=== PATIENT | female | born 1980 | race Caucasian/White ===

== ENCOUNTER 2022-07-23 10:34 | Emergency (ER) | payer OTHER ==
[2022-07-23] MEDS ORDERED: Albuterol/Ipratropium 3.0-0.5 MG/3 ML Neb Soln ONE (10:39)
[2022-07-23] MEDS ORDERED: Albuterol/Ipratropium 3.0-0.5 MG/3 ML Neb Soln NEB ONE ×2 (10:45→12:23)
[2022-07-23] MEDS ORDERED: predniSONE 20 MG Tab PO ONE (11:00)
[2022-07-23] MEDS ORDERED: Albuterol/Ipratropium 3.0-0.5 MG/3 ML Neb Soln NEB STA (12:20)
== END 2022-07-23 12:32 | disposition home or self-care (01) ==
LOC: MW.ED 10:34
DX: J45.901 Unspecified asthma with (acute) exacerbation (principal); Z20.822 Contact with and (suspected) exposure to COVID-19
CPT/HCPCS: 87635; 99285; A9270; J7620-GY; U0002

== ENCOUNTER 2022-10-22 17:26 | Emergency (ER) | payer SELFPAY ==
[2022-10-22] MEDS ORDERED: Albuterol/Ipratropium 3.0-0.5 MG/3 ML Neb Soln NEB ONE (17:54)
[2022-10-22] MEDS ORDERED: methylPREDNISolone Sodium Succinate 125 MG/2 ML SDV IVPUSH ONE (17:54)
[2022-10-22] MEDS: methylPREDNISolone Sodium Succinate 125 MG/2 ML SDV IM ONE ×2 (18:10→18:14)
[2022-10-22 18:13] LABS: CORONAVIRUS COVID-19 NAA POSITIVE (NEGATIVE); INFLUENZA A NAA NEGATIVE (NEGATIVE); INFLUENZA B NAA NEGATIVE (NEGATIVE); RESPIRATORY SYNCYTIAL VIR NAA NEGATIVE (NEGATIVE)
[2022-10-22] MEDS ORDERED: Dexamethasone 10 MG/ML SDV PO ONE (18:13)
== END 2022-10-22 19:08 | disposition home or self-care (01) ==
LOC: MW.ED 17:26
DX: U07.1 COVID-19 (principal); J44.9 Chronic obstructive pulmonary disease, unspecified; Z86.711 Personal history of pulmonary embolism; Z79.899 Other long term (current) drug therapy
CPT/HCPCS: 0241U; 99285; J8540; J2930; J7620-GY

== ENCOUNTER 2022-10-28 10:38 | Emergency (ER) | payer SELFPAY ==
[2022-10-28] MEDS ORDERED: Ketorolac 60 MG/2 ML SDV IM ONE (11:00)
[2022-10-28 12:05] LABS: CARBON DIOXIDE,CO2 23.8 mmol/L (21.0-32.0); POTASSIUM,K 4.2 mmol/L (3.5-5.1)
== END 2022-10-28 12:36 | disposition home or self-care (01) ==
LOC: MW.ED 10:38
DX: U07.1 COVID-19 (principal); F17.210 Nicotine dependence, cigarettes, uncomplicated; Z79.899 Other long term (current) drug therapy; Z90.49 Acquired absence of other specified parts of digestive tract; Z90.710 Acquired absence of both cervix and uterus
CPT/HCPCS: 36415; 71045; 80053; 81001; 85025; 96372; 99284; J1885

== ENCOUNTER 2023-01-10 10:29 | Emergency (ER) | payer MEDICAID ==
[2023-01-10 11:34] LABS: CARBON DIOXIDE,CO2 27.3 mmol/L (21.0-32.0); POTASSIUM,K 4.1 mmol/L (3.5-5.1)
== END 2023-01-10 13:00 | disposition home or self-care (01) ==
LOC: MW.ED 10:29
DX: N30.00 Acute cystitis without hematuria (principal); J44.9 Chronic obstructive pulmonary disease, unspecified; Z90.49 Acquired absence of other specified parts of digestive tract; Z79.899 Other long term (current) drug therapy
CPT/HCPCS: 36415; 74176; 74176-26; 80053; 81001; 81025; 85025; 87086; 99284

== ENCOUNTER 2023-01-16 01:44 | Emergency (ER) | payer MEDICAID ==
[2023-01-16] MEDS ORDERED: Ketorolac 30 MG/ML SDV IVPUSH ONE (02:07)
[2023-01-16] MEDS ORDERED: Ondansetron 4 MG/2 ML SDV IVPUSH ONE (02:07)
[2023-01-16] MEDS ORDERED: Sodium Chloride 0.9% 1,000 ML IV ONE (02:07)
[2023-01-16 02:49] LABS: POTASSIUM,K 4.4 mmol/L (3.5-5.1)
[2023-01-16] MEDS ORDERED: Iopamidol 755 MG/ML 500 ML Multipack Bottle IVPUSH STA (04:10)
== END 2023-01-16 05:15 | disposition home or self-care (01) ==
LOC: MW.ED 01:44
DX: K52.9 Noninfective gastroenteritis and colitis, unspecified (principal); J44.9 Chronic obstructive pulmonary disease, unspecified; Z79.899 Other long term (current) drug therapy
CPT/HCPCS: 36415; 74177; 80053; 81001; 83690; 83735; 84703; 85025; 96361; 96374; 96375; 99284; J1885; J2405; J7030; Q9967

== ENCOUNTER 2023-03-01 06:40 | Day surgery (SDC) | payer MEDICAID ==
[~2023-03-01 06:40] MED LIST: Lactated Ringers 1,000 ML IV SCH; Sodium Chloride 0.9% 10 ML Syringe FLUSH PRN; Sodium Chloride 0.9% 2.5 ML Syringe FLUSH PRN; Sodium Chloride 0.9% 20 ML SDV IV PRN
[2023-03-01] MEDS ORDERED: Lidocaine 2% 5 ML SDV ONE (07:48)
[2023-03-01] MEDS ORDERED: Propofol 200 MG/20 ML SDV ONE ×4 (07:48→08:26)
[2023-03-01] MEDS ORDERED: Water For Injection, Sterile 20 ML ONE (08:34)
[2023-03-01] MEDS ORDERED: Lidocaine 1% 5 ML VIAL ONE (11:21)
== END 2023-03-01 09:15 | disposition home or self-care (01) ==
LOC: MW.SDS 06:40
PROVIDERS: ATTEND Surgery
DX: D12.5 Benign neoplasm of sigmoid colon (principal); K62.1 Rectal polyp; K21.9 Gastro-esophageal reflux disease without esophagitis; K44.9 Diaphragmatic hernia without obstruction or gangrene; K31.89 Other diseases of stomach and duodenum; J44.9 Chronic obstructive pulmonary disease, unspecified; M79.7 Fibromyalgia; N28.1 Cyst of kidney, acquired; N94.89 Other specified conditions associated with female genital organs and menstrual cycle; F17.210 Nicotine dependence, cigarettes, uncomplicated; Z79.899 Other long term (current) drug therapy
CPT/HCPCS: 43239; 45380; J2704; J7120; 00813; J3490

== ENCOUNTER 2023-09-01 07:57 | Emergency (ER) | payer MEDICAID | END 2023-09-01 08:40 | disposition home or self-care (01) | LOC: MW.ED 07:57 | DX: T81.9XXA Unspecified complication of procedure, initial encounter (principal); J45.909 Unspecified asthma, uncomplicated; E66.9 Obesity, unspecified; Z68.41 Body mass index [BMI] 40.0-44.9, adult; Z86.16 Personal history of COVID-19; Z79.01 Long term (current) use of anticoagulants; Z79.899 Other long term (current) drug therapy | CPT/HCPCS: 99283 ==

== ENCOUNTER 2023-09-29 05:05 | Emergency (ER) | payer MEDICAID ==
[2023-09-29] MEDS ORDERED: Acetaminophen 325 MG Tab PO ONE (05:30)
[2023-09-29 06:01] LABS: CORONAVIRUS COVID-19 NAA POSITIVE (NEGATIVE); INFLUENZA A NAA NEGATIVE (NEGATIVE); INFLUENZA B NAA NEGATIVE (NEGATIVE)
== END 2023-09-29 06:19 | disposition home or self-care (01) ==
LOC: MW.ED 05:05
DX: U07.1 COVID-19 (principal); J44.9 Chronic obstructive pulmonary disease, unspecified; E66.9 Obesity, unspecified; Z68.41 Body mass index [BMI] 40.0-44.9, adult; Z79.899 Other long term (current) drug therapy
CPT/HCPCS: 0240U; 82947; 99283; A9270

== ENCOUNTER 2024-05-20 08:00 | Emergency (ER) | payer MEDICAID ==
[2024-05-20] MEDS: Albuterol 0.083% 2.5 MG/3 ML Neb Soln NEB ONE (08:22)
[2024-05-20] MEDS: Sodium Chloride 0.9% 2.5 ML Syringe FLUSH PRN (08:22)
[2024-05-20] MEDS: Magnesium Sulfate/Water 2 GM in Premix Bag 1 BAG IV ONE (08:22)
[2024-05-20] MEDS: Sodium Chloride 0.9% 10 ML Syringe FLUSH PRN (08:22)
[2024-05-20] MEDS: Ondansetron 4 MG/2 ML SDV IVPUSH ONE (08:22)
[2024-05-20] MEDS: Albuterol/Ipratropium 3.0-0.5 MG/3 ML Neb Soln NEB ONE (08:23)
[2024-05-20 08:42] LABS: BASE EXCESS VENOUS 0.7 (-2.0-3.0); PH,VENOUS 7.46 (7.31-7.41)
[2024-05-20 08:51] LABS: BASOPHILS ABSOLUTE AUTO 0.03 K/uL (0.00-0.20); BASOPHILS PERCENT AUTO 0.3 % (0.0-1.0); EOSINOPHILS ABSOLUTE AUTO 0.17 K/uL (0.00-0.45); EOSINOPHILS PERCENT AUTO 1.9 % (0.0-6.0); HEMATOCRIT 48.6 % (37.0-47.0); HEMOGLOBIN 16.1 g/dL (12.0-16.0); IMMATURE GRAN ABSOLUTE AUTO 0.02 K/uL (0.00-0.05); IMMATURE GRAN PERCENT AUTO 0.2 % (0.0-0.4); LYMPHOCYTES ABSOLUTE AUTO 1.82 K/uL (1.00-4.80); LYMPHOCYTES PERCENT AUTO 20.3 % (24.0-44.0); MEAN CORPUSCULAR HEMOGLOBIN 29.4 pg (28.0-32.0); MEAN CORPUSCULAR HGB CONC 33.1 g/dL (32.0-36.0); MEAN CORPUSCULAR VOLUME 88.8 fL (83.0-99.0); MEAN PLATELET VOLUME 9.6 fL (9.4-12.3); MONOCYTES ABSOLUTE AUTO 0.84 K/uL (0.00-0.80); MONOCYTES PERCENT AUTO 9.4 % (0.0-8.0); NEUTROPHILS PERCENT AUTO 67.9 % (41.0-71.0); PLATELET COUNT,PLT 323 K/uL (150-400); RED BLOOD CELL COUNT 5.47 M/uL (4.10-5.30); WHITE BLOOD CELL COUNT,WBC 8.98 K/uL (3.9-11.3)
[2024-05-20 09:08] LABS: HEMOGLOBIN A1C 5.6 %
[2024-05-20 09:26] LABS: CORONAVIRUS COVID-19 NAA NEGATIVE (NEGATIVE); INFLUENZA A NAA NEGATIVE (NEGATIVE); INFLUENZA B NAA NEGATIVE (NEGATIVE); RESPIRATORY SYNCYTIAL VIR NAA NEGATIVE (NEGATIVE)
[2024-05-20 09:28] LABS: ALBUMIN 3.5 g/dL (3.4-5.0); BILIRUBIN TOTAL 0.5 mg/dL (0.2-1.0); CALCIUM 8.6 mg/dL (8.5-10.1); CARBON DIOXIDE,CO2 25.6 mmol/L (21.0-32.0); CREATININE 0.9 mg/dL (0.6-1.0); EST CRCL DRUG DOSING (CG) 81.63 mL/min; MAGNESIUM 1.9 mg/dL (1.8-2.4); POTASSIUM,K 3.7 mmol/L (3.5-5.1); PROTEIN TOTAL,TP 7.1 g/dL (6.4-8.2)
[2024-05-20] MEDS: Dexamethasone 4 MG Tab PO ONE (11:42)
== END 2024-05-20 11:52 | disposition home or self-care (01) ==
LOC: MW.ED 08:00
DX: J44.1 Chronic obstructive pulmonary disease with (acute) exacerbation (principal); R19.7 Diarrhea, unspecified; Z79.51 Long term (current) use of inhaled steroids; Z86.16 Personal history of COVID-19; Z79.899 Other long term (current) drug therapy; Z79.01 Long term (current) use of anticoagulants
CPT/HCPCS: 0241U; 36415; 71045; 80053; 82803; 83036; 83690; 83735; 83880; 84484; 85025; 85379; 93005; 94640; 96374; 96375; 99285; J2405; J3475; J3490; J8540; J7620-GY

== ENCOUNTER 2024-05-31 12:37 | Emergency (ER) | payer MEDICAID ==
[2024-05-31] MEDS: Sodium Chloride 0.9% 10 ML Syringe FLUSH PRN (14:03)
[2024-05-31] MEDS: Albuterol/Ipratropium 3.0-0.5 MG/3 ML Neb Soln NEB ONE (14:03)
[2024-05-31] MEDS: Cyclobenzaprine 10 MG Tab PO ONE (14:03)
[2024-05-31] MEDS: Sodium Chloride 0.9% 2.5 ML Syringe FLUSH PRN (14:03)
[2024-05-31 14:54] LABS: BASOPHILS ABSOLUTE AUTO 0.04 K/uL (0.00-0.20); BASOPHILS PERCENT AUTO 0.3 % (0.0-1.0); EOSINOPHILS ABSOLUTE AUTO 0.21 K/uL (0.00-0.45); EOSINOPHILS PERCENT AUTO 1.6 % (0.0-6.0); HEMATOCRIT 47.3 % (37.0-47.0); HEMOGLOBIN 15.9 g/dL (12.0-16.0); IMMATURE GRAN ABSOLUTE AUTO 0.04 K/uL (0.00-0.05); IMMATURE GRAN PERCENT AUTO 0.3 % (0.0-0.4); LYMPHOCYTES ABSOLUTE AUTO 2.79 K/uL (1.00-4.80); LYMPHOCYTES PERCENT AUTO 20.8 % (24.0-44.0); MEAN CORPUSCULAR HEMOGLOBIN 29.6 pg (28.0-32.0); MEAN CORPUSCULAR HGB CONC 33.6 g/dL (32.0-36.0); MEAN CORPUSCULAR VOLUME 88.1 fL (83.0-99.0); MEAN PLATELET VOLUME 8.8 fL (9.4-12.3); MONOCYTES ABSOLUTE AUTO 1.16 K/uL (0.00-0.80); MONOCYTES PERCENT AUTO 8.7 % (0.0-8.0); NEUTROPHILS ABSOLUTE AUTO 9.17 K/uL (1.80-7.70); NEUTROPHILS PERCENT AUTO 68.3 % (41.0-71.0); PLATELET COUNT,PLT 339 K/uL (150-400); RED BLOOD CELL COUNT 5.37 M/uL (4.10-5.30); WHITE BLOOD CELL COUNT,WBC 13.41 K/uL (3.9-11.3)
[2024-05-31 15:23] LABS: A/G RATIO 0.9 (0.9-1.6); ALANINE AMINOTRANSFERASE,ALT 14 IU/L (14-63); ALBUMIN 3.6 g/dL (3.4-5.0); ALKALINE PHOSPHATASE 74 U/L (46-116); ASPARTATE AMNIOTRANSFERASE,AST 12 IU/L (15-37); BILIRUBIN TOTAL 0.6 mg/dL (0.2-1.0); BLOOD UREA NITROGEN,BUN 7 mg/dL (7.0-18.0); CALCIUM 9.1 mg/dL (8.5-10.1); CARBON DIOXIDE,CO2 27.3 mmol/L (21.0-32.0); CHLORIDE,CL 100 mmol/L (98-107); EST CRCL DRUG DOSING (CG) 73.46 mL/min; ESTIMATED GFR 70 mL/min (>60); GLUCOSE RANDOM 91 mg/dL (74-106); LIPASE 19 U/L (16-77); POTASSIUM,K 3.8 mmol/L (3.5-5.1); PRO B-TYPE NATRIUR PEPT,BNPPRO 43 pg/mL (0-125); PROTEIN TOTAL,TP 7.4 g/dL (6.4-8.2); SODIUM,NA 137 mmol/L (136-145)
[2024-05-31 15:33] LABS: APPEARANCE,URINE SLT CLOUDY; BILIRUBIN,URINE NEGATIVE (NEGATIVE); COLOR,URINE YELLOW; GLUCOSE,URINE NEGATIVE (NEGATIVE); KETONES,URINE TRACE mg/dL (NEGATIVE); LEUKOCYTE ESTERASE,URINE NEGATIVE (NEGATIVE); NITRITE,URINE NEGATIVE (NEGATIVE); OCCULT BLOOD,URINE TRACE-INTACT (NEGATIVE); PH,URINE 6.5 (5.0-8.0); PROTEIN,URINE NEGATIVE (NEGATIVE)
[2024-05-31] MEDS: Iopamidol 755 MG/ML 500 ML Multipack Bottle IVPUSH STA (15:45)
[2024-05-31 15:47] LABS: BACTERIA,URINE NOT SEEN (NEGATIVE); EPITHELIAL CELLS,URINE RARE (NONE-FEW); WBC,URINE 0-1 (0-5/HPF)
[2024-05-31] MEDS: Ketorolac 30 MG/ML SDV IVPUSH ONE (17:41)
[2024-05-31] MEDS: Lidocaine 4% 1 each Patch TOP PRN (18:32)
== END 2024-05-31 18:35 | disposition home or self-care (01) ==
LOC: MW.ED 12:37
DX: R07.89 Other chest pain (principal); R10.12 Left upper quadrant pain; J44.9 Chronic obstructive pulmonary disease, unspecified; Z75.8 Other problems related to medical facilities and other health care; Z79.51 Long term (current) use of inhaled steroids; Z79.01 Long term (current) use of anticoagulants; Z79.899 Other long term (current) drug therapy; Z90.710 Acquired absence of both cervix and uterus
CPT/HCPCS: 36415; 71275; 80053; 81001; 83690; 83880; 84484; 85025; 93005; 96374; 99285; A9270; J1885; J3490; Q9967; J7620-GY

== ENCOUNTER 2024-12-19 08:13 | Emergency (ER) | payer MEDICAID ==
[2024-12-19] MEDS: Albuterol/Ipratropium 3.0-0.5 MG/3 ML Neb Soln NEB ONE (09:20)
[2024-12-19] MEDS: predniSONE 20 MG Tab PO ONE (09:20)
[2024-12-19] MEDS: Ketorolac 30 MG/ML SDV IM ONE (09:20)
== END 2024-12-19 10:08 | disposition home or self-care (01) ==
LOC: MW.ED 08:13
DX: J10.1 Influenza due to other identified influenza virus with other respiratory manifestations (principal); J44.1 Chronic obstructive pulmonary disease with (acute) exacerbation; E66.9 Obesity, unspecified; F17.210 Nicotine dependence, cigarettes, uncomplicated; Z90.710 Acquired absence of both cervix and uterus; Z79.899 Other long term (current) drug therapy; Z68.41 Body mass index [BMI] 40.0-44.9, adult; Z75.8 Other problems related to medical facilities and other health care
CPT/HCPCS: 71046; 87428; 94640; 96372; 99285; A9270; J1885; 99284; J7620-GY

== ENCOUNTER 2024-12-25 15:06 | Inpatient (IN) | payer MEDICAID ==
[2024-12-25] MEDS: methylPREDNISolone Sodium Succinate 125 MG/2 ML SDV IVPUSH ONE (17:53)
[2024-12-25] MEDS: Sodium Chloride 0.9% 1,000 ML IV ONE (17:53)
[2024-12-25] MEDS: Albuterol/Ipratropium 3.0-0.5 MG/3 ML Neb Soln NEB ONE ×3 (18:15→19:51)
[2024-12-25 18:17] LABS: BASOPHILS ABSOLUTE AUTO 0.03 K/uL (0.00-0.20); BASOPHILS PERCENT AUTO 0.2 % (0.0-1.0); EOSINOPHILS ABSOLUTE AUTO 0.17 K/uL (0.00-0.45); EOSINOPHILS PERCENT AUTO 1.1 % (0.0-6.0); HEMATOCRIT 44.5 % (37.0-47.0); HEMOGLOBIN 15.2 g/dL (12.0-16.0); IMMATURE GRAN ABSOLUTE AUTO 0.06 K/uL (0.00-0.05); IMMATURE GRAN PERCENT AUTO 0.4 % (0.0-0.4); LYMPHOCYTES ABSOLUTE AUTO 1.97 K/uL (1.00-4.80); LYMPHOCYTES PERCENT AUTO 12.6 % (24.0-44.0); MEAN CORPUSCULAR HEMOGLOBIN 30.3 pg (28.0-32.0); MEAN CORPUSCULAR HGB CONC 34.2 g/dL (32.0-36.0); MEAN CORPUSCULAR VOLUME 88.6 fL (83.0-99.0); MONOCYTES ABSOLUTE AUTO 1.01 K/uL (0.00-0.80); MONOCYTES PERCENT AUTO 6.5 % (0.0-8.0); NEUTROPHILS PERCENT AUTO 79.2 % (41.0-71.0); PLATELET COUNT,PLT 340 K/uL (150-400); RED BLOOD CELL COUNT 5.02 M/uL (4.10-5.30); WHITE BLOOD CELL COUNT,WBC 15.64 K/uL (3.9-11.3)
[2024-12-25 18:41] LABS: A/G RATIO 0.9 (0.9-1.6); ALBUMIN 3.4 g/dL (3.4-5.0); BILIRUBIN TOTAL 0.7 mg/dL (0.2-1.0); CALCIUM 8.7 mg/dL (8.5-10.1); CARBON DIOXIDE,CO2 26.5 mmol/L (21.0-32.0); CREATININE 1.1 mg/dL (0.6-1.0); EST CRCL DRUG DOSING (CG) 66.78 mL/min; POTASSIUM,K 3.6 mmol/L (3.5-5.1); PROTEIN TOTAL,TP 7.1 g/dL (6.4-8.2)
[2024-12-25] MEDS: cefTRIAXone 2 GM in Sodium Chloride 0.9% 50 ML IV ONE (19:28)
[2024-12-25] MEDS ORDERED: Polyethylene Glycol 3350 Powder 17 GM Packet PO PRN (21:14)
[2024-12-25] MEDS ORDERED: Ondansetron 4 MG/2 ML SDV IVPUSH PRN (21:14)
[2024-12-25] MEDS ORDERED: Acetaminophen 650 MG Supp RECTAL PRN (21:14)
[2024-12-25] MEDS ORDERED: Melatonin 3 MG Tab PO PRN (21:14)
[2024-12-25 22:02] LABS: CORONAVIRUS COVID-19 NAA NEGATIVE (NEGATIVE); INFLUENZA A NAA NEGATIVE (NEGATIVE); INFLUENZA B NAA NEGATIVE (NEGATIVE); RESPIRATORY SYNCYTIAL VIR NAA NEGATIVE (NEGATIVE)
[2024-12-25] MEDS: Sodium Chloride 0.9% 1,000 ML IV SCH (23:03)
[2024-12-25] MEDS: Oseltamivir 75 MG Cap PO SCH (23:07)
[2024-12-25] MEDS: Pantoprazole 40 MG in Sodium Chloride 0.9% 10 ML IVPUSH SCH (23:07)
[2024-12-25] MEDS: Albuterol/Ipratropium 3.0-0.5 MG/3 ML Neb Soln NEB SCH (23:40)
[2024-12-26] MEDS: Acetaminophen 325 MG Tab PO PRN (00:02)
[2024-12-26] MEDS: Albuterol/Ipratropium 3.0-0.5 MG/3 ML Neb Soln NEB PRN (01:31)
[2024-12-26 06:24] LABS: BASOPHILS ABSOLUTE AUTO 0.01 K/uL (0.00-0.20); BASOPHILS PERCENT AUTO 0.1 % (0.0-1.0); EOSINOPHILS ABSOLUTE AUTO 0.01 K/uL (0.00-0.45); EOSINOPHILS PERCENT AUTO 0.1 % (0.0-6.0); HEMATOCRIT 42.8 % (37.0-47.0); HEMOGLOBIN 14.7 g/dL (12.0-16.0); IMMATURE GRAN ABSOLUTE AUTO 0.08 K/uL (0.00-0.05); IMMATURE GRAN PERCENT AUTO 0.6 % (0.0-0.4); LYMPHOCYTES ABSOLUTE AUTO 0.77 K/uL (1.00-4.80); LYMPHOCYTES PERCENT AUTO 5.8 % (24.0-44.0); MEAN CORPUSCULAR HEMOGLOBIN 30.4 pg (28.0-32.0); MEAN CORPUSCULAR HGB CONC 34.3 g/dL (32.0-36.0); MEAN CORPUSCULAR VOLUME 88.6 fL (83.0-99.0); MEAN PLATELET VOLUME 9.2 fL (9.4-12.3); MONOCYTES ABSOLUTE AUTO 0.12 K/uL (0.00-0.80); MONOCYTES PERCENT AUTO 0.9 % (0.0-8.0); NEUTROPHILS PERCENT AUTO 92.5 % (41.0-71.0); PLATELET COUNT,PLT 349 K/uL (150-400); RED BLOOD CELL COUNT 4.83 M/uL (4.10-5.30); WHITE BLOOD CELL COUNT,WBC 13.19 K/uL (3.9-11.3)
[2024-12-26 06:56] LABS: CALCIUM 8.6 mg/dL (8.5-10.1); CARBON DIOXIDE,CO2 23.5 mmol/L (21.0-32.0); CREATININE 0.9 mg/dL (0.6-1.0); EST CRCL DRUG DOSING (CG) 81.63 mL/min; MAGNESIUM 2.3 mg/dL (1.8-2.4); POTASSIUM,K 4.1 mmol/L (3.5-5.1)
[2024-12-26] MEDS: methylPREDNISolone Sodium Succinate 40 MG/1 ML SDV IVPUSH SCH (08:12)
[2024-12-26] MEDS ORDERED: Codeine/guaiFENesin 10-100 MG/5 ML Syrup 5 ML Cup PO PRN (09:20)
[2024-12-26] MEDS: Rivaroxaban 10 MG Tab PO SCH (09:42)
[2024-12-26] MEDS: Nicotine 21 MG/24 Hr Patch TRDERM SCH (09:43)
[2024-12-26] MEDS ORDERED: guaiFENesin 100 MG/5 ML Soln 5 ML UD Cup PO PRN (10:01)
[2024-12-26] MEDS: Benzonatate 100 MG Cap PO PRN (10:06)
[2024-12-26] MEDS: lamoTRIgine 100 MG Tab PO SCH (12:34)
[2024-12-26] MEDS: DULoxetine 60 MG Cap PO SCH (12:34)
[2024-12-26] MEDS: LORazepam 1 MG Tab PO PRN (15:15)
[2024-12-26] MEDS: cefTRIAXone 1 GM in Sodium Chloride 0.9% 50 ML IV SCH (17:59)
[2024-12-26] MEDS ORDERED: cefTRIAXone 2 GM in Sodium Chloride 0.9% 50 ML IV SCH (19:00)
[2024-12-26] MEDS: Montelukast 10 MG Tab PO SCH (20:28)
[2024-12-26] MEDS: Famotidine 20 MG Tab PO SCH (20:29)
[2024-12-26] MEDS: busPIRone 5 MG Tab PO SCH (20:29)
[2024-12-26] MEDS: BUDESONIDE INH SCH (23:20)
[2024-12-27] MEDS: Pantoprazole 40 MG Tab.CR PO SCH (05:41)
[2024-12-27 06:10] LABS: BASOPHILS ABSOLUTE AUTO 0.01 K/uL (0.00-0.20); BASOPHILS PERCENT AUTO 0.1 % (0.0-1.0); EOSINOPHILS ABSOLUTE AUTO 0.02 K/uL (0.00-0.45); EOSINOPHILS PERCENT AUTO 0.1 % (0.0-6.0); HEMATOCRIT 46.1 % (37.0-47.0); HEMOGLOBIN 15.5 g/dL (12.0-16.0); IMMATURE GRAN ABSOLUTE AUTO 0.18 K/uL (0.00-0.05); LYMPHOCYTES ABSOLUTE AUTO 1.11 K/uL (1.00-4.80); LYMPHOCYTES PERCENT AUTO 6.2 % (24.0-44.0); MEAN CORPUSCULAR HEMOGLOBIN 30.3 pg (28.0-32.0); MEAN CORPUSCULAR HGB CONC 33.6 g/dL (32.0-36.0); MEAN PLATELET VOLUME 9.3 fL (9.4-12.3); MONOCYTES ABSOLUTE AUTO 0.67 K/uL (0.00-0.80); MONOCYTES PERCENT AUTO 3.7 % (0.0-8.0); NEUTROPHILS ABSOLUTE AUTO 15.97 K/uL (1.80-7.70); NEUTROPHILS PERCENT AUTO 88.9 % (41.0-71.0); PLATELET COUNT,PLT 413 K/uL (150-400); RED BLOOD CELL COUNT 5.12 M/uL (4.10-5.30); WHITE BLOOD CELL COUNT,WBC 17.96 K/uL (3.9-11.3)
[2024-12-27 06:37] LABS: CALCIUM 9.1 mg/dL (8.5-10.1); CARBON DIOXIDE,CO2 24.7 mmol/L (21.0-32.0); CREATININE 0.9 mg/dL (0.6-1.0); EST CRCL DRUG DOSING (CG) 81.63 mL/min; MAGNESIUM 2.4 mg/dL (1.8-2.4); POTASSIUM,K 4.2 mmol/L (3.5-5.1)
== END 2024-12-27 11:30 | disposition home or self-care (01) | DRG 189 ==
LOC: MW.ED 15:06 → MW.MS 20:53
PROVIDERS: ADMIT Family Medicine; ATTEND Family Medicine
DX: R09.02 Hypoxemia (principal); J44.89 Other specified chronic obstructive pulmonary disease; J96.01 Acute respiratory failure with hypoxia; J44.1 Chronic obstructive pulmonary disease with (acute) exacerbation; Z68.41 Body mass index [BMI] 40.0-44.9, adult; M79.7 Fibromyalgia; Z75.8 Other problems related to medical facilities and other health care; M19.90 Unspecified osteoarthritis, unspecified site; F31.9 Bipolar disorder, unspecified; E66.9 Obesity, unspecified; K59.09 Other constipation; K52.9 Noninfective gastroenteritis and colitis, unspecified; Z96.659 Presence of unspecified artificial knee joint; F17.210 Nicotine dependence, cigarettes, uncomplicated; J10.1 Influenza due to other identified influenza virus with other respiratory manifestations; Z79.51 Long term (current) use of inhaled steroids; Z79.899 Other long term (current) drug therapy; Z79.01 Long term (current) use of anticoagulants; Z90.710 Acquired absence of both cervix and uterus; Z86.718 Personal history of other venous thrombosis and embolism
CPT/HCPCS: 0241U; 36415; 71046; 80048; 80053; 82947; 83735; 85025; 94640; 94668; 93010; 99283; A9270-GY; J0696; J2470; J2919; J3490; J7030; J7620-GY

== ENCOUNTER 2025-05-23 14:35 | Emergency (ER) | payer MEDICAID ==
[2025-05-23 15:14] LABS: BASOPHILS ABSOLUTE AUTO 0.04 K/uL (0.00-0.20); BASOPHILS PERCENT AUTO 0.3 % (0.0-1.0); EOSINOPHILS ABSOLUTE AUTO 0.24 K/uL (0.00-0.45); EOSINOPHILS PERCENT AUTO 1.7 % (0.0-6.0); IMMATURE GRAN ABSOLUTE AUTO 0.05 K/uL (0.00-0.05); IMMATURE GRAN PERCENT AUTO 0.4 % (0.0-0.4); LYMPHOCYTES ABSOLUTE AUTO 1.87 K/uL (1.00-4.80); LYMPHOCYTES PERCENT AUTO 13.2 % (24.0-44.0); MEAN PLATELET VOLUME 9.7 fL (9.4-12.3); MONOCYTES ABSOLUTE AUTO 1.05 K/uL (0.00-0.80); MONOCYTES PERCENT AUTO 7.4 % (0.0-8.0); NEUTROPHILS ABSOLUTE AUTO 10.88 K/uL (1.80-7.70); NEUTROPHILS PERCENT AUTO 77.0 % (41.0-71.0); NRBC ABSOLUTE 0.00 K/uL (0.00-0.02); NRBC PERCENT 0.0 /100WBC (0.0-0.2); PLATELET COUNT,PLT 317 K/uL (150-400); RED BLOOD CELL COUNT 5.18 M/uL (4.10-5.30); WHITE BLOOD CELL COUNT,WBC 14.13 K/uL (3.9-11.3)
[2025-05-23] MEDS: Promethazine 25 MG/ML SDV IM ONE (15:21)
[2025-05-23 15:24] LABS: A/G RATIO 1.0 (0.9-1.6); ALANINE AMINOTRANSFERASE,ALT 21.0 IU/L (14-63); ASPARTATE AMNIOTRANSFERASE,AST 12.0 IU/L (15-37); BILIRUBIN TOTAL 0.5 mg/dL (0.2-1.0); BLOOD UREA NITROGEN,BUN 8.0 mg/dL (7.0-18.0); CARBON DIOXIDE,CO2 29.0 mmol/L (21.0-32.0); CHLORIDE,CL 102.0 mmol/L (98-107); CREATININE 1.1 mg/dL (0.6-1.0); EST CRCL DRUG DOSING (CG) 66.07 mL/min; GLUCOSE RANDOM 123.0 mg/dL (74-106); POTASSIUM,K 4.0 mmol/L (3.5-5.1); PROTEIN TOTAL,TP 6.8 g/dL (6.4-8.2); SODIUM,NA 139.0 mmol/L (136-145)
[2025-05-23 15:25] LABS: ESTIMATED GFR 62.0 mL/min (>60)
== END 2025-05-23 16:30 | disposition home or self-care (01) ==
LOC: MW.ED 14:35
DX: K52.9 Noninfective gastroenteritis and colitis, unspecified (principal); E86.0 Dehydration; Z48.01 Encounter for change or removal of surgical wound dressing; J44.9 Chronic obstructive pulmonary disease, unspecified; E66.9 Obesity, unspecified; Z79.899 Other long term (current) drug therapy; Z79.01 Long term (current) use of anticoagulants; Z68.42 Body mass index [BMI] 45.0-49.9, adult
CPT/HCPCS: 36415; 80053; 85025; 96360; 96372; 99284; J2550; J7030

== ENCOUNTER 2025-08-13 20:04 | Emergency (ER) | payer MEDICAID ==
[2025-08-13] MEDS: Diphtheria,Pertussis(Acell),Tetanus Vaccine 0.5 ML Syringe IM ONE (20:52)
== END 2025-08-13 21:07 | disposition home or self-care (01) ==
LOC: MW.ED 20:04
DX: S61.211A Laceration without foreign body of left index finger without damage to nail, initial encounter (principal); J45.909 Unspecified asthma, uncomplicated; E66.9 Obesity, unspecified; Z79.899 Other long term (current) drug therapy; Z90.49 Acquired absence of other specified parts of digestive tract; Z90.710 Acquired absence of both cervix and uterus; W26.0XXA Contact with knife, initial encounter
CPT/HCPCS: 12001; 90471; 90715; 99282-25